=== PATIENT | female | born 1990 | race Caucasian/White ===

== ENCOUNTER 2020-08-09 16:47 | Emergency (ER) | payer OTHER ==
[~2020-08-09 16:47] MED LIST: NORCO 5-325 TA1 EACH PO; PERCOCET 5/325 T1 EA PO; PRENATAL VITAM1 EAC6 PO; ZOFRAN ODT 4 MG4 MG PO
[2020-08-09 17:25] LABS: HEMOGLOBIN 12.5 gm/dl (12.3-15.3); RED BLOOD COUNT 4.62 M/UL (4.00-5.10); WHITE BLOOD COUNT 10.2 K/UL (4.5-11.0)
[2020-08-09 17:45] LABS: BUN/CREATININE RATIO 13 (0-10)
[2020-08-09] MEDS ORDERED: LODINE CAP 300300 MG PO (18:28)
[2020-08-09] MEDS ORDERED: ZOFRAN ODT 4 MG4 MG PO (18:28)
== END 2020-08-09 18:37 | disposition home or self-care (01) ==
LOC: ER1 16:47
PROVIDERS: Physician Assistant
DX: R10.9 Unspecified abdominal pain (principal); R11.0 Nausea; R10.819 Abdominal tenderness, unspecified site; F17.210 Nicotine dependence, cigarettes, uncomplicated; Z90.49 Acquired absence of other specified parts of digestive tract
CPT/HCPCS: 80053; 81001; 84703; 85025; 96374; 96375; 99284; J1885; J2405

== ENCOUNTER 2021-01-27 19:00 | Emergency (ER) | payer OTHER ==
[~2021-01-27 19:00] MED LIST changes: +LODINE CAP 300300 MG PO
[2021-01-27 20:40] LABS: HEMOGLOBIN 13.3 gm/dl (12.3-15.3); RED BLOOD COUNT 4.69 M/UL (4.00-5.10)
[2021-01-27 20:56] LABS: BUN/CREATININE RATIO 10 (0-10)
[2021-01-27] MEDS ORDERED: VIBRAMYCIN100 MG PO (23:06)
[2021-01-29 14:14] LABS: LYME IGG/IGM AB <0.91 ISR (0.00-0.90)
[2021-01-30 14:14] LABS: E. CHAFFEENSIS (HME) IGG TITER Negative (Neg:<1:64); E. CHAFFEENSIS (HME) IGM TITER Negative (Neg:<1:20)
== END 2021-01-28 00:05 | disposition home or self-care (01) ==
LOC: ER1 19:00
PROVIDERS: Physician Assistant
DX: S40.262A Insect bite (nonvenomous) of left shoulder, initial encounter (principal); L03.90 Cellulitis, unspecified; F17.200 Nicotine dependence, unspecified, uncomplicated; Z79.899 Other long term (current) drug therapy; W57.XXXA Bitten or stung by nonvenomous insect and other nonvenomous arthropods, initial encounter
CPT/HCPCS: 80053; 83605; 85025; 85652; 86140; 86618; 86666; 86757; 87040; 96374; 99283